=== PATIENT | female | born 1985 | race African-American/Black ===

== ENCOUNTER 2018-01-26 14:41 | Inpatient (IN) | payer OTHER ==
[~2018-01-26] VITALS: Ht 167.6 cm; Wt 96.8 kg
--- NOTE | ~2018-01-26 | EKG ---
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
--- NOTE | ~2018-01-26 | 2DMMODE ---
[facility] [address] [place] [address] 2 D/M-MODE ECHOCARDIOGRAM Name: INEZSHY Room #: 210-P ADM IN M.R.#: [id number] Admission: 01/26/18 Attend Phys: Landon Grey Discharge: Date of : 83 Date of Service: 01/28/18 0857 Report #: [id number] THIS REPORT FOR: //name// APPROVED REPORT Study performed: 01/28/2018 07:57:31 EXAM: Comprehensive 2D, Doppler, and color-flow Echocardiogram Patient Location: Bedside Room #: 210 Status: routine BSA: 2.05 HR: 44 bpm BP: 129/86 mmHg Other Information Study Quality: Good Indications Bradycardia 2D Dimensions RVDd: 32.01 mm LVEF(%): 61.88 (>50%) IVSd: 7.50 (7-11mm) LVOT Diam: 19.03 (18-24mm) LVDd: 50.96 mm PWd: 9.84 (7-11mm) Ascending Ao: 22.08 (22-36mm) LVDs: 33.90 (25-40mm) Aortic Root: 24.00 mm IVC: 11.00 mm Solano's LVEF: 61.88 % Volumes Left Atrial Volume (Systole) Single Plane 4CH: 30.68 mL Single Plane 2CH: 38.33 mL LA ESV Index: 18.00 mL/m2 Aortic Valve AoV Peak Roosevelt.: 1.71 m/s AO Peak Gr.: 11.70 mmHg LVOT Max P.27 mmHg LVOT Max V: 1.15 m/s DIXON Vmax: 1.91 cm2 Mitral Valve E/A Ratio: 2.3 MV Decel. Time: 233.29 ms MV E Max Roosevelt.: 1.13 m/s [facility] [place] [address] 2 D/M-MODE ECHOCARDIOGRAM Name: SHY WILEY Room #: 210-P [facility] IN M.R.#: [id number] Admission: 01/26/18 Attend Phys: Landon Grey Discharge: Date of : 83 Date of Service: 01/28/18 0857 Report #: [id number] MV A Roosevelt.: 0.49 m/s MV PHT: 67.66 ms IVRT: 96.89 ms Pulmonary Valve PV Peak Roosevelt.: 0.88 m/s PV Peak Gr.: 3.11 mmHg Pulmonary Vein P Vein S: 0.62 m/s P Vein A: 0.19 m/s P Vein D: 0.40 m/s P Vein A Dur.: 133.8 msec P Vein S/D Ratio: 1.55 Tricuspid Valve TR Peak Roosevelt.: 2.31 m/s RAP Estimate: 5.00 mmHg TR Peak Gr.: 21.30 mmHg PA Pressure: 26.00 mmHg Left Ventricle The left ventricle is normal size. There is normal left ventricular wall thickness. The left ventricular systolic function is normal. The left ventricular ejection fraction is within the normal range. LVEF is 55-60%. Right Ventricle The right ventricle is normal size. The right ventricular systolic function is normal. Atria The left atrium size is normal. The right atrium size is normal. Aortic Valve The aortic valve is normal in structure. Trace aortic regurgitation. There is no aortic valvular stenosis. Mitral Valve The mitral valve is normal in structure. Trace mitral regurgitation. No evidence of mitral valve stenosis. Tricuspid Valve The tricuspid valve is normal in structure. Trace to mild tricuspid regurgitation. PAP is estimated at 26 mmHg. Pulmonic Valve The pulmonary valve is normal in structure. Trace pulmonic regurgitation. [address] [address] 2 D/M-MODE ECHOCARDIOGRAM Name: SHY WILEY Room #: 210-P [facility] IN ..#: [id number] Admission: 01/26/18 Attend Phys: Landon Grey Discharge: Date of : 83 Date of Service: 01/28/18 0857 Report #: [id number] Great Vessels The aortic root is normal in size. IVC is normal in size and collapses >50% with inspiration. Pericardium There is no pericardial effusion. <Conclusion> The left ventricle is normal size. There is normal left ventricular wall thickness. The left ventricular systolic function is normal. The right ventricle is normal size. The left atrium size is normal. The right atrium size is normal. The aortic valve is normal in structure. Trace mitral regurgitation. <ELECTRONICALLY SIGNED> By: Fernando Caldwell MD 01/28/18 0857 0857 0857 Fernando Caldwell MD /INF
--- NOTE | ~2018-01-26 | HC ---
[facility] [place] [address] CONSULTATION Name: SHY WILEY Room #: [address] [place] [address] IN M.R.#: [id number] Admission: 01/26/18 Attend Phys: Landon Webb Discharge: Date of : 83 Report #: [id number] THIS REPORT FOR: //name// CC: LOIDA physician/PCP Landon Webb DATE OF SERVICE: 01/27/2018 CARDIOLOGY CONSULTATION INDICATION: Bradycardia. HISTORY OF PRESENT ILLNESS: This is a 32-year-old female presenting with weakness, lightheadedness and near syncope. For the past week, she has been feeling generalized weakness with a diminished appetite. She felt periods of lightheadedness, difficult to describe. She does report having near syncopal episodes, one time and occurred while she was cleaning her house. There is no history of shortness of breath, fever, chills or diarrhea. She did have a runny nose last week. In the ER, she was noted to be bradycardic with heart rate in the 40 beats per minute range. Her symptoms have improved with IV hydration in the ER. She does not feel any weakness or lightheadedness. She is ambulating. The software architect reveals heart rates in the 40-50 beats per minute range. PAST MEDICAL HISTORY: Negative for hypertension, negative for diabetes. ALLERGIES: None. MEDICATIONS: None. SOCIAL HISTORY: Denies tobacco use. Urine tox screen positive for THC. FAMILY HISTORY: Negative for premature CAD. REVIEW OF SYSTEMS: A full 10-point review of systems performed, only the pertinent positives and negatives are described in the HPI. PHYSICAL EXAMINATION: VITAL SIGNS: Blood pressure is 110/60, heart rate is 40-50 beats per minute. GENERAL APPEARANCE: A well-developed, well-nourished female, in no acute respiratory distress. HEAD AND EYES: Normocephalic. Sclerae are anicteric. ENT: Oral mucosa moist. NECK: Supple. LUNGS: Clear to auscultation. CARDIAC: Regular rate and rhythm, S1, S2 positive. ABDOMEN: Soft. [facility] [address] [place] [address] CONSULTATION Name: SHY WILEY Room #: 210 ADM IN M.R.#: [id number] Admission: 01/26/18 Attend Phys: Landon Webb Discharge: Date of : 83 Report #: [id number] EXTREMITIES: No cyanosis, no edema. ECG reveals sinus bradycardia. LABORATORY VALUES: TSH is within normal limits. Hemoglobin is 13.0, white count is 5.4. Sodium is 141, creatinine is 0.9. IMPRESSION AND PLAN: 1. Weakness/near syncope, most likely attributed to dehydration. Her symptoms improved with IV hydration, may have a mild infectious process. 2. Bradycardia. I do not believe this is contributing to her symptoms. She probably has a high vagal tone. The TSH level is within normal limits. The plan is to proceed with an echocardiogram and treadmill test to assess chronotropic competence. 3. History of anemia, resolved. 4. Tetrahydrocannabinol use, cessation advised. <ELECTRONICALLY SIGNED> By: Fernando Caldwell MD 01/28/18 0909 1054 1807 Fernando Caldwell MD /nt
[2018-01-26 14:55] VITALS: BP 155/72
[2018-01-26 15:41] LABS: ABSOLUTE NEUTROPHILS 2.2 thou/uL (1.4-8.2); BASOPHILS 0.8 % (0.0-2.0); EOSINOPHILS 3.3 % (0.0-3.0); HEMATOCRIT 38.2 % (37.0-47.0); LYMPHOCYTES 48.4 % (24.0-44.0); MCH 27.1 pg (26.0-34.0); MCHC 33.9 g/dL (28.0-37.0); MCV 79.9 fL (80.0-100.0); MONOCYTES 7.3 % (1.0-8.0); PLATELET COUNT 310 thou/uL (150-400); POLYS 40.2 % (36.0-66.0); RBC 4.78 mil/uL (4.20-5.00); RDW 13.5 % (10.5-14.5); WBC 5.4 thou/uL (4.0-11.0)
[2018-01-26 15:48] LABS: ANION GAP 6 mmol/L (7-16); BUN 10 mg/dL (7-18); CALCIUM 8.9 mg/dL (8.5-10.1); CHLORIDE 108 mmol/L (98-107); CO2 27 mmol/L (21-32); CREATININE 0.9 mg/dL (0.6-1.0); GLUCOSE 102 mg/dL (74-106); POTASSIUM 4.1 mmol/L (3.5-5.1); SODIUM 141 mmol/L (136-145)
[2018-01-26 15:57] LABS: TROPONIN-I < 0.04 ng/mL (<0.06)
[2018-01-26 16:42] LABS: AMP/METHAMP Negative (Negative); BARBITURATES Negative (Negative); BENZODIAZEPINES Negative (Negative); COCAINE Negative (Negative); METHADONE Negative (Negative); OPIATES Negative (Negative); PCP Negative (Negative)
[2018-01-26 17:27] VITALS: BP 164/62
[2018-01-26 19:45] VITALS: BP 132/72
[2018-01-27 00:30] VITALS: BP 110/57
[2018-01-27 04:45] VITALS: BP 106/62
[2018-01-27 07:50] VITALS: BP 107/66
[2018-01-27 11:45] VITALS: BP 120/75
[2018-01-27 16:20] VITALS: BP 131/74
[2018-01-27 19:43] VITALS: BP 125/69
[2018-01-28 03:38] VITALS: BP 129/86
[2018-01-28 07:10] VITALS: BP 116/63
[2018-01-28 11:05] VITALS: BP 118/75
[2018-01-28 14:33] VITALS: BP 118/75
[2018-01-28] MEDS ORDERED: WORK RELEASE (14:42)
== END 2018-01-28 15:30 | disposition home or self-care (01) | DRG 641 ==
LOC: ER 14:41 → 2N 16:26 → EROBS 16:26 → 2N 18:18
PROVIDERS: Emergency Medicine
DX: E86.0 Dehydration (principal); F12.10 Cannabis abuse, uncomplicated; R00.1 Bradycardia, unspecified; Z79.899 Other long term (current) drug therapy
CPT/HCPCS: 10081